=== PATIENT | female | born 1965 | race Caucasian/White ===

== ENCOUNTER 2019-07-21 21:13 | Emergency (ER) | payer SELFPAY ==
[2019-07-21] MEDS ORDERED: ASPIRIN 81 MG TABLET, CHEWABLE PO ONE ×2 (22:27→23:57)
[2019-07-21 22:40] LABS: ABSOLUTE EOSINOPHILS # (AUTO) 0.1 10^3/uL (0.0-0.6); ABSOLUTE LYMPHOCYTES (AUTO) 2.3 10^3/uL (0.5-4.7); ABSOLUTE NEUT (AUTO) 6.3 10^3/uL (1.7-8.2); BASOPHILS % (AUTO) 0.4 % (0-2); EOSINOPHILS % (AUTO) 0.9 % (0-6); HEMATOCRIT 43.5 % (36.0-47.0); HEMOGLOBIN 15.1 g/dL (12.0-15.5); MEAN CORPUSCULAR HEMOGLOBIN 32.2 pg (27.0-33.4); MEAN CORPUSCULAR HGB CONC 34.7 g/dL (32.0-36.0); MEAN CORPUSCULAR VOLUME 93 fl (80-97); PLATELET COUNT 326 10^3/uL (150-450); RED BLOOD COUNT 4.69 10^6/uL (3.72-5.28); RED CELL DISTRIBUTION WIDTH 13.2 % (11.5-14.0); SEGMENTED NEUTROPHILS % (AUTO) 64.7 % (42-78); TOTAL CELLS COUNTED % (AUTO) 100 %; WHITE BLOOD COUNT 9.7 10^3/uL (4.0-10.5)
[2019-07-21 22:45] LABS: APPEARANCE,URINE CLEAR; BILIRUBIN,URINE NEGATIVE (NEGATIVE); COLOR,URINE STRAW; GLUCOSE, URINE NEGATIVE (NEGATIVE); KETONES,URINE NEGATIVE (NEGATIVE); LEUKOCYTE ESTERASE,URINE TRACE (NEGATIVE); NITRITE,URINE NEGATIVE (NEGATIVE); PROTEIN,URINE NEGATIVE (NEGATIVE); URINE SPECIFIC GRAVITY 1.002; UROBILINOGEN,URINE NEGATIVE mg/dL (<2.0)
[2019-07-21 22:56] LABS: ALBUMIN 4.6 g/dL (3.5-5.0); ALKALINE PHOSPHATASE 121 U/L (38-126); ANION GAP 13 (5-19); ASPARTATE AMINO TRANSFERASE 47 U/L (14-36); BILIRUBIN,DIRECT 0.1 mg/dL (0.0-0.4); BILIRUBIN,TOTAL 0.7 mg/dL (0.2-1.3); BLOOD UREA NITROGEN 7 mg/dL (7-20); CALCIUM 9.7 mg/dL (8.4-10.2); CARBON DIOXIDE 23 mmol/L (22-30); CHLORIDE 88 mmol/L (98-107); CREATINE KINASE 111 U/L (30-135); GLUCOSE 101 mg/dL (75-110); POTASSIUM 3.6 mmol/L (3.6-5.0); TOTAL PROTEIN 7.4 g/dL (6.3-8.2)
--- NOTE | 2019-07-21 22:58 | RADIOLOGY REPORT (SQ) ---
EXAM DESCRIPTION: [facility]: XR CHEST 2 VIEWS Views: 2 CLINICAL HISTORY: 53 years Female, chest pain COMPARISON: 03/31/2016 FINDINGS: The lungs are clear. No pneumothorax or significant pleural effusion. Cardiomediastinal silhouette is within normal limits. Bony structures are unremarkable for age. IMPRESSION: 1. No acute cardiothoracic abnormality.
[2019-07-21 23:05] LABS: CREATINE KINASE MB 1.49 ng/mL (<4.55)
[2019-07-21 23:12] LABS: TROPONIN I 0.107 ng/mL
[2019-07-22] MEDS ORDERED: NITROGLYCERIN 0.4 MG/TAB 25 TAB/BOTTLE SL PRN (00:03)
--- NOTE | 2019-07-22 00:09 | ER Document Report ---
ED General - General Chief Complaint: Chest Pain Stated Complaint: CHEST PAIN Time Seen by Provider: 07/21/19 23:55 TRAVEL OUTSIDE OF THE [place] IN LAST 30 DAYS: No - HPI Notes: Patient presents with concern of chest pain. Yesterday she been feeling generalized fatigue and intermittent nausea. This morning she woke up roughly 5 AM on drink coffee she had a tight twisting pain in her chest she also had pain radiate down her left arm. She also had intermittent nausea with her pain no vomiting but she did have diaphoresis as well. Patient has history of 2 heart attacks and 7 stents that have been placed in the years 2010 and 2012 at outside hospitals. She is seen by community care in clinic and does not have a ethyl blender here. Her pain is wax and wane throughout the day and is relieved by the nitro spray that she has. Recent cough congestion fevers she is a non- smoker quit many years ago. - Related Data Allergies/Adverse Reactions: No Known Allergies Allergy (Unverified 03/14/11 12:41) Past Medical History - Social History Smoking Status: Unknown if Ever Smoked Family History: Reviewed & Not Pertinent - Past Medical History Cardiac Medical History: Reports: Hx Coronary Artery Disease, Hx Heart Attack, Hx Hypertension Past Surgical History: Reports: Hx Coronary Stent - RCA x 3, LCA x 1, LAD x 2, circumflex x1., Hx Tubal Ligation Review of Systems - Review of Systems Constitutional: No symptoms reported EENT: No symptoms reported Cardiovascular: See HPI Respiratory: No symptoms reported Gastrointestinal: No symptoms reported Genitourinary: No symptoms reported Female Genitourinary: No symptoms reported Musculoskeletal: No symptoms reported Skin: No symptoms reported Hematologic/Lymphatic: No symptoms reported Neurological/Psychological: No symptoms reported Physical Exam - Vital signs Vitals: Temp Pulse Resp BP Pulse Ox 98.1 F 82 16 143/73 H 98 07/21/19 21:43 07/21/19 21:43 07/21/19 21:43 07/21/19 21:43 07/21/19 21:43 - General General appearance: Appears well, Alert - HEENT Head: Normocephalic, Atraumatic Eyes: Normal Pupils: PERRL - Respiratory Respiratory status: No respiratory distress Chest status: Nontender Breath sounds: Normal Chest palpation: Normal - Cardiovascular Rhythm: Regular Heart sounds: Normal auscultation Murmur: No - Abdominal Inspection: Normal Distension: No distension Bowel sounds: Normal Tenderness: Nontender Organomegaly: No organomegaly - Neurological Neuro grossly intact: Yes Cognition: Normal Orientation: AAOx4 - Psychological Associated symptoms: Normal affect Course - Re-evaluation Re-evalutation: 07/22/19 00:44 Patient's pain goes down to 1 with nitroglycerin tablet. Her EKG taken at 10:[address] depressions V3 through V6. Repeat EKG taken at 12:29 AM [address] resolution [address] depressions. Her initial troponin is 0.107 are cut off her AMI is 0.12. Discussed this with Dr. Burleson and he recommended a second troponin II hours to see if it is rising as if it is she would need intervention and we do not have this on the weekend. 07/22/19 01:[address] sweeper operator advised and will accept patient. Her troponin actually trended down but the fact that her ST depressions resolved with nitroglycerin and her heart history will provide 1 shot of Lovenox in the emergency department. She was also given aspirin. - Vital Signs Vital signs: Temp Pulse Resp BP Pulse Ox 97.7 F 82 20 119/62 97 07/22/19 03:31 07/21/19 21:43 07/22/19 03:31 07/22/19 03:31 07/22/19 03:31 - Laboratory Result Diagrams: 07/21/19 22:25 07/21/19 22:25 Laboratory results interpreted by me: 07/21/19 07/21/19 22:25 22:25 Sodium 124.0 L Chloride 88 L AST 47 H Ur Leukocyte Esterase TRACE H - EKG Interpretation by Me Additional EKG results interpreted by me: 07/22/19 00:46 Time 2117 Rate of 88, sinus rhythm, normal axis and intervals, mild ST depression V3 through the 6 less than or equal to 1 mm Time 12:29 AM Rate of 81, sinus rhythm, normal axis, resolution of ST depressions V3 through V6 Discharge - Discharge Clinical Impression: Chest pain Qualifiers: Chest pain type: other chest pain Qualified Code(s): R07.89 - Other chest pain Condition: Good Disposition: [facility], [facility] Admitting Provider: Narciso
[2019-07-22] MEDS ORDERED: ENOXAPARIN SODIUM INJ 100 MG/1 ML DISP.SYRIN SUBCUT SCH (01:45)
[2019-07-22 01:49] LABS: INTERNATIONAL RATION (INR) 0.95; PROTHROMBIN TIME 12.7 SEC (11.4-15.4)
[2019-07-22] MEDS ORDERED: NITROGLYCERIN 2% OINTMENT 1 GM PACKET TP ONE (01:59)
[2019-07-22] MEDS ORDERED: LORAZEPAM INJ 2 MG/1 ML VIAL IV ONE (02:37)
[2019-07-22 03:50] VITALS: BP 119/62
--- NOTE | 2019-07-22 09:10 | EKG REPORT ---
SEVERITY:- ABNORMAL ECG - SINUS RHYTHM INFERIOR INFARCT, OLD LATERAL LEADS ARE ALSO INVOLVED BORDERLINE PROLONGED QT INTERVAL : Confirmed by: Lauri Villa 22-Jul-2019 09:09:31
--- NOTE | 2019-07-22 09:10 | EKG REPORT ---
SEVERITY:- ABNORMAL ECG - SINUS RHYTHM INFERIOR INFARCT, OLD LATERAL LEADS ARE ALSO INVOLVED BORDERLINE PROLONGED QT INTERVAL : Confirmed by: Lauri Villa 22-Jul-2019 09:09:22
--- NOTE | 2019-07-22 09:11 | EKG REPORT ---
SEVERITY:- BORDERLINE ECG - SINUS RHYTHM BORDERLINE INFERIOR Q WAVES LVH : Confirmed by: Lauri Villa 22-Jul-2019 09:09:49
== END 2019-07-22 03:50 | disposition short-term general hospital (02) ==
LOC: ER 21:13
DX: R07.89 Other chest pain (principal); R11.0 Nausea; R53.83 Other fatigue; I25.10 Atherosclerotic heart disease of native coronary artery without angina pectoris; I10 Essential (primary) hypertension; I25.2 Old myocardial infarction; Z98.51 Tubal ligation status
CPT/HCPCS: 93005 ×2; 99285; 96374; 96375; 36415; 82553; 82550; 83735; 85025; 85610; 80053; 81001; 84484; 71046; 93010 ×2; J2060; J1650

== ENCOUNTER 2019-08-22 13:29 | Emergency (ER) | payer SELFPAY ==
[2019-08-22] MEDS ORDERED: ASPIRIN 81 MG TABLET, CHEWABLE PO ONE (13:40)
[2019-08-22 13:52] LABS: ABSOLUTE LYMPHOCYTES (AUTO) 2.2 10^3/uL (0.5-4.7); ABSOLUTE MONOCYTES (AUTO) 0.6 10^3/uL (0.1-1.4); ABSOLUTE NEUT (AUTO) 4.4 10^3/uL (1.7-8.2); BASOPHILS % (AUTO) 0.6 % (0-2); EOSINOPHILS % (AUTO) 0.6 % (0-6); HEMOGLOBIN 14.3 g/dL (12.0-15.5); LYMPHOCYTES % (AUTO) 30.1 % (13-45); MEAN CORPUSCULAR HEMOGLOBIN 31.8 pg (27.0-33.4); MEAN CORPUSCULAR HGB CONC 33.2 g/dL (32.0-36.0); MEAN CORPUSCULAR VOLUME 96 fl (80-97); MONOCYTES % (AUTO) 7.7 % (3-13); PLATELET COUNT 387 10^3/uL (150-450); RED BLOOD COUNT 4.49 10^6/uL (3.72-5.28); RED CELL DISTRIBUTION WIDTH 14.5 % (11.5-14.0); TOTAL CELLS COUNTED % (AUTO) 100 %; WHITE BLOOD COUNT 7.2 10^3/uL (4.0-10.5)
[2019-08-22 14:17] LABS: ALBUMIN 4.3 g/dL (3.5-5.0); ALKALINE PHOSPHATASE 135 U/L (38-126); ANION GAP 16 (5-19); ASPARTATE AMINO TRANSFERASE 40 U/L (14-36); BILIRUBIN,DIRECT 0.2 mg/dL (0.0-0.4); BILIRUBIN,TOTAL 0.3 mg/dL (0.2-1.3); BLOOD UREA NITROGEN 3 mg/dL (7-20); CALCIUM 9.2 mg/dL (8.4-10.2); CARBON DIOXIDE 18 mmol/L (22-30); CHLORIDE 110 mmol/L (98-107); CREATINE KINASE 82 U/L (30-135); GLUCOSE 97 mg/dL (75-110); POTASSIUM 4.2 mmol/L (3.6-5.0); TOTAL PROTEIN 7.4 g/dL (6.3-8.2)
[2019-08-22 14:45] LABS: CREATINE KINASE MB 1.28 ng/mL (<4.55)
[2019-08-22 14:47] LABS: TROPONIN I < 0.012 ng/mL
[2019-08-22] MEDS ORDERED: KETOROLAC TROMETHAMINE INJ/PF 30 MG/1 ML SDV IV ONE (15:02)
--- NOTE | 2019-08-22 15:24 | RADIOLOGY REPORT (SQ) ---
EXAM DESCRIPTION: CHEST SINGLE VIEW COMPLETED DATE/TIME: 08/22/2019 3:00 pm REASON FOR STUDY: pain/sob COMPARISON: PA and lateral views of the chest from 07/21/2019. EXAM PARAMETERS: NUMBER OF VIEWS: One view. TECHNIQUE: Single frontal radiographic view of the chest acquired. RADIATION DOSE: NA LIMITATIONS: None. FINDINGS: LUNGS AND PLEURA: Asymmetric opacity in the left base that blunts the left lateral costoph renic sulcus and is associated with volume loss given the elevation of the left hemidiaphragm. There is no pneumothorax. MEDIASTINUM AND HILAR STRUCTURES: No mediastinal hilar contour abnormality. HEART AND VASCULAR STRUCTURES: The cardiac silhouette and pulmonary vasculature within normal limits. BONES: No acute findings. HARDWARE: Median sternotomy wires and mediastinal surgical clips. OTHER: No other finding. IMPRESSION: Acute left basilar opacity that is associated with volume loss given the elevation of th e left hemidiaphragm. Given the volume loss a combination of pleural fluid and atelectasis is favore d, however clinical correlation to exclude an infection is recommended. TECHNICAL DOCUMENTATION: JOB ID: [id number]- All Rights Reserved Reading location - IP/workstation name: [email or web address]
--- NOTE | 2019-08-22 15:33 | EKG REPORT ---
SEVERITY:- ABNORMAL ECG - SINUS RHYTHM PROBABLE LEFT ATRIAL ABNORMALITY RIGHT BUNDLE BRANCH BLOCK INFERIOR INFARCT, AGE INDETERMINATE : Confirmed by: Lorenzo Chandler MD 22-Aug-2019 15:32:58
[2019-08-22] MEDS ORDERED: TRAMADOL HCL 50 MG TABLET PO ONE (15:47)
[2019-08-22] MEDS ORDERED: MORPHINE SULFATE 10 MG/ML INJ IV ONE ×2 (18:00→21:05)
--- NOTE | 2019-08-22 18:05 | ER Document Report ---
ED Cardiac - General Chief Complaint: Chest Pain Stated Complaint: DIFFICULTY BREATHING Time Seen by Provider: 08/22/19 14:27 Primary Care Provider: STEPHANIA YUAN PA-C [Primary Care Provider] - Follow up as needed Mode of Arrival: Medic Information source: Patient TRAVEL OUTSIDE OF THE [place] IN LAST 30 DAYS: No - HPI Notes: Patient presents complaining of chest pain. She states she was talking on the phone when she had syncope. She says that she remembers talking on the phone and the next thing she knows she was hearing people knock on her door while she was laying on the living room floor. She states that apparently her daughter who was talking to her on the phone called paramedics when she no longer responded while they were talking on the phone. Patient states that she got up to answer the door for the paramedics she tripped and fell and scraped her right knee. She states she is not having chest pain. She is unsure if she was having chest pain before she fell. She states she also feels short of breath. And anxious. Patient's chest pain is now across both sides of her chest and in her breast. It is worse with movement and better with rest. It is moderate in intensity. It is aching. She has had no significant cough or fevers recently. She did recently have a coronary artery bypass graft on approximately July 252018. Subsequently she developed a left pleural effusion which was drained on August 092018. The pain has been moderate. - Related Data Allergies/Adverse Reactions: ketorolac [From Toradol] Adverse Reaction (Verified 08/22/19 15:16) Past Medical History - General Information source: Patient - Social History Smoking Status: Former Smoker Frequency of alcohol use: None Drug Abuse: None Family History: Reviewed & Not Pertinent Patient has suicidal ideation: No Patient has homicidal ideation: No - Past Medical History Cardiac Medical History: Reports: Hx Coronary Artery Disease, Hx Heart Attack, Hx Hypercholesterolemia, Hx Hypertension Past Surgical History: Reports: Hx Cardiac Surgery - triple bypass, 7 stents, Hx Coronary Stent - RCA x 3, LCA x 1, LAD x 2, circumflex x1., Hx Tubal Ligation Review of Systems - Review of Systems Constitutional: Malaise, Weakness. denies: Chills, Fever Cardiovascular: Chest pain. denies: Palpitations Respiratory: Short of breath. denies: Stridor Gastrointestinal: denies: Abdominal pain, Diarrhea -: Yes All other systems reviewed and negative Physical Exam - Vital signs Vitals: Pulse BP Pulse Ox 111 H 147/96 H 94 08/22/19 13:35 08/22/19 13:35 08/22/19 13:35 Interpretation: Tachycardic - General General appearance: Appears well, Alert - HEENT Head: Normocephalic, Atraumatic Eyes: Normal Pupils: PERRL - Respiratory Respiratory status: No respiratory distress Chest status: Tender - Chest diffusely tender to palpation Breath sounds: Decreased air movement - Bilateral Chest palpation: Tender. No: Flail segment, Sucking chest wound - Cardiovascular Rhythm: Tachycardia Heart sounds: Normal auscultation Murmur: No - Abdominal Inspection: Normal Distension: No distension Bowel sounds: Normal Tenderness: Nontender Organomegaly: No organomegaly - Back Back: Normal, Nontender - Extremities General upper extremity: Normal inspection, Nontender, Normal color, Normal ROM, Normal temperature General lower extremity: Normal temperature, Other - Left lower extremity unremarkable. Right lower extremity has a tender abraded area over the right knee. - Neurological Neuro grossly intact: Yes Cognition: Normal Orientation: AAOx4 Dewitt Coma Scale Eye Opening: Spontaneous Alexa Coma Scale Verbal: Oriented Dewitt Coma Scale Motor: Obeys Commands Dewitt Coma Scale Total: 15 Speech: Normal Motor strength normal: LUE, RUE, LLE, RLE Sensory: Normal - Psychological Associated symptoms: Normal affect, Normal mood - Skin Skin Temperature: Warm Skin Moisture: Dry Skin Color: Normal Course - Re-evaluation Re-evalutation: 08/22/19 18:03 Patient presents with apparent syncope and chest pain. She did recently have a CABG as well as a pleural effusion drained. She is also had some shortness of breath here. Her EKG has some new ST depression but I am on sure if this is new since her CABG. The only old EKG I have was before she had the CABG. Patient has a negative troponin at this time. She has an unremarkable chest x-ray except for a small effusion on the left but this is known. Patient's vital signs have been stable. I have called and discussed the case with her cardiothoracic surgeon at [facility]. He has accepted the patient in transfer. - Vital Signs Vital signs: Temp Pulse Resp BP Pulse Ox 97.9 F 98 20 121/85 98 08/22/19 14:14 10/29/19 14:00 08/22/19 17:00 08/22/19 17:01 08/22/19 17:01 - Laboratory Result Diagrams: 08/22/19 13:40 08/22/19 13:40 Laboratory results interpreted by me: 08/22/19 08/22/19 13:40 13:40 RDW 14.5 H Chloride 110 H Carbon Dioxide 18 L BUN 3 L AST 40 H Alkaline Phosphatase 135 H - Diagnostic Test Radiology reviewed: Image reviewed, Reports reviewed - EKG Interpretation by Me EKG shows normal: Sinus rhythm Rate: Normal - 95 Rhythm: NSR Raven/QRS: RBBB Discharge - Discharge Clinical Impression: Syncope and collapse Chest pain Qualifiers: Chest pain type: unspecified Qualified Code(s): R07.9 - Chest pain, unspecified Condition: Stable Disposition: [facility] Referrals: STEPHANIA YUAN PA-C [Primary Care Provider] - Follow up as needed
[2019-08-23 00:11] VITALS: BP 130/82
[2019-08-23] MEDS ORDERED: MORPHINE SULFATE 10 MG/ML INJ IV ONE (00:20)
--- NOTE | 2019-08-23 00:21 | ER Document Report ---
Doctor's Note Notes: 08/23/19 00:21 Patient has been reevaluated and is safe for transport to receiving facility.
== END 2019-08-23 00:37 | disposition short-term general hospital (02) ==
LOC: ER 13:29
DX: R55 Syncope and collapse (principal); R07.9 Chest pain, unspecified; R06.00 Dyspnea, unspecified; R53.81 Other malaise; Z98.51 Tubal ligation status; Z95.1 Presence of aortocoronary bypass graft
CPT/HCPCS: 93005; 96376; 99285; 96374; 36415; 82553; 82550; 85025; 80053; 84484; 71045; 93010; J2270 ×2

== ENCOUNTER 2019-09-17 01:49 | Emergency (ER) | payer SELFPAY ==
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
[2019-09-17 03:37] LABS: APPEARANCE,URINE SLIGHTLY-CLOUDY; BILIRUBIN,URINE NEGATIVE (NEGATIVE); COLOR,URINE YELLOW; GLUCOSE, URINE NEGATIVE (NEGATIVE); KETONES,URINE NEGATIVE (NEGATIVE); LEUKOCYTE ESTERASE,URINE LARGE (NEGATIVE); NITRITE,URINE NEGATIVE (NEGATIVE); PROTEIN,URINE NEGATIVE (NEGATIVE); URINE SPECIFIC GRAVITY 1.005; UROBILINOGEN,URINE NEGATIVE mg/dL (<2.0)
[2019-09-17 03:44] LABS: ABSOLUTE MONOCYTES (AUTO) 0.9 10^3/uL (0.1-1.4); TOTAL CELLS COUNTED % (AUTO) 100 %
[2019-09-17] MEDS ORDERED: LIDOCAINE 1%/EPINEPHRINE INJ 20 ML VIAL INJ ONE (03:44)
[2019-09-17 03:45] LABS: URINE AMPHETAMINES SCREEN NEGATIVE; URINE BARBITURATES SCREEN NEGATIVE; URINE COCAINE SCREEN NEGATIVE; URINE MARIJUANA (THC) SCREEN NEGATIVE; URINE METHADONE SCREEN NEGATIVE; URINE PHENCYCLIDINE SCREEN NEGATIVE
[2019-09-17 03:46] LABS: URINE BENZODIAZEPINES SCREEN UNCONFIRMED POSITIVE
[2019-09-17 03:50] LABS: ABSOLUTE LYMPHOCYTES (AUTO) 3.1 10^3/uL (0.5-4.7); ABSOLUTE NEUT (AUTO) 6.4 10^3/uL (1.7-8.2); BASOPHILS % (AUTO) 0.3 % (0-2); EOSINOPHILS % (AUTO) 0.2 % (0-6); HEMATOCRIT 39.9 % (36.0-47.0); HEMOGLOBIN 13.6 g/dL (12.0-15.5); LYMPHOCYTES % (AUTO) 29.3 % (13-45); MEAN CORPUSCULAR VOLUME 94 fl (80-97); MONOCYTES % (AUTO) 8.5 % (3-13); PLATELET COUNT 446 10^3/uL (150-450); RED BLOOD COUNT 4.24 10^6/uL (3.72-5.28); SEGMENTED NEUTROPHILS % (AUTO) 61.7 % (42-78); WHITE BLOOD COUNT 10.4 10^3/uL (4.0-10.5)
--- NOTE | 2019-09-17 03:51 | RADIOLOGY REPORT (SQ) ---
EXAM DESCRIPTION: XR FOOT 3 OR MORE VIEWS COMPLETED DATE/TME: 09/17/2019 02:54 CLINICAL HISTORY: 53 years, Female, glass? swelling, pain COMPARISON: None. NUMBER OF VIEWS: Three TECHNIQUE: Three views of the right foot LIMITATIONS: None. FINDINGS: There is no acute fracture or dislocation. There is no radiopaque foreign body. There is no large soft tissue swelling. IMPRESSION: No acute fracture or dislocation copyright 2010 [employer]- All Rights Reserved
--- NOTE | 2019-09-17 03:52 | RADIOLOGY REPORT (SQ) ---
EXAM DESCRIPTION: XR CHEST 1 VIEW COMPLETED DATE/TME: 09/17/2019 02:53 CLINICAL HISTORY: 53 years, Female, chest pain COMPARISON: 08/22/2019 NUMBER OF VIEWS: One TECHNIQUE: AP view of the chest LIMITATIONS: None. FINDINGS: There is stable mild elevation of the left hemidiaphragm. There is no focal consolidation. The heart size is stable. There is no pneumothorax or large pleural effusion. Median sternotomy wires are noted. IMPRESSION: No acute cardiopulmonary abnormality copyright 2010 [employer]- All Rights Reserved
--- NOTE | 2019-09-17 03:53 | RADIOLOGY REPORT (SQ) ---
EXAM DESCRIPTION: XR TIBIA FIBULA 2 VIEWS COMPLETED DATE/TME: 09/17/2019 02:54 CLINICAL HISTORY: 53 years, Female, glass? swelling, pain COMPARISON: None. NUMBER OF VIEWS: Two TECHNIQUE: Two views of the left tibia and fibula LIMITATIONS: None. FINDINGS: There is no acute fracture or dislocation. No radiopaque foreign body. There are surgical clips posterior to the proximal tibia and fibula. No large soft tissue swelling. IMPRESSION: No acute fracture or dislocation. copyright 2010 [employer]- All Rights Reserved
--- NOTE | 2019-09-17 03:54 | RADIOLOGY REPORT (SQ) ---
EXAM DESCRIPTION: XR HAND 3 OR MORE VIEWS COMPLETED DATE/TME: 09/17/2019 02:54 CLINICAL HISTORY: 53 years, Female, glass? swelling, pain COMPARISON: None. NUMBER OF VIEWS: Three TECHNIQUE: Three views of the right hand LIMITATIONS: None. FINDINGS: There is no acute fracture or dislocation. There is no radiopaque foreign body. No large soft tissue swelling. IMPRESSION: No acute fracture or dislocation copyright 2010 [employer]- All Rights Reserved
[2019-09-17 03:59] LABS: ACETAMINOPHEN < 10 ug/mL (10-30); ALBUMIN 4.2 g/dL (3.5-5.0); ALCOHOL 180 mg/dL (NONE DETECTED); ALKALINE PHOSPHATASE 111 U/L (38-126); ANION GAP 16 (5-19); ASPARTATE AMINO TRANSFERASE 42 U/L (14-36); BILIRUBIN,DIRECT 0.1 mg/dL (0.0-0.4); BILIRUBIN,TOTAL 0.4 mg/dL (0.2-1.3); BLOOD UREA NITROGEN 4 mg/dL (7-20); CALCIUM 9.4 mg/dL (8.4-10.2); CARBON DIOXIDE 17 mmol/L (22-30); CHLORIDE 106 mmol/L (98-107); GLUCOSE 104 mg/dL (75-110); POTASSIUM 4.3 mmol/L (3.6-5.0); SALICYLATE < 1.0 mg/dL (2.0-20.0); TOTAL PROTEIN 7.4 g/dL (6.3-8.2)
[2019-09-17] MEDS ORDERED: FAMOTIDINE 20 MG TABLET PO ONE (05:10)
[2019-09-17] MEDS ORDERED: ASPIRIN 81 MG TABLET, CHEWABLE PO ONE (05:10)
[2019-09-17] MEDS ORDERED: NORMAL SALINE 1000 ML 1,000 ML IV ONE ×2 (05:11→06:12)
[2019-09-17] MEDS ORDERED: ONDANSETRON HCL INJ/PF 4 MG/2 ML SDV IV ONE (05:11)
[2019-09-17] MEDS ORDERED: MORPHINE SULFATE 10 MG/ML INJ IV ONE (05:11)
[2019-09-17] MEDS ORDERED: HEPARIN SOD (PORCINE) 1,000 UNIT/ML 10 ML VIAL IV ONE (05:55)
[2019-09-17] MEDS ORDERED: HEPARIN SODIUM,PORCINE/D5W 25,000 UNIT/250 ML RTUINJ IV PRN (05:55)
[2019-09-17 06:06] LABS: PROTHROMBIN TIME 20.2 SEC (11.4-15.4)
[2019-09-17 06:07] LABS: PARTIAL THROMBOPLASTIN TIME 25.5 SEC (23.5-35.8)
[2019-09-17] MEDS ORDERED: NORMAL SALINE 500 ML IV ONE (06:34)
[2019-09-17 07:10] VITALS: BP 108/52
[2019-09-17] MEDS ORDERED: HEPARIN SOD (PORCINE) 1,000 UNIT/ML 10 ML VIAL IV PRN (08:56)
--- NOTE | 2019-09-17 17:15 | EKG REPORT ---
SEVERITY:- ABNORMAL ECG - SINUS RHYTHM RIGHT BUNDLE BRANCH BLOCK INFERIOR INFARCT, AGE INDETERMINATE : Confirmed by: Lorenzo Chandler MD 17-Sep-2019 17:15:24
--- NOTE | 2019-09-17 17:15 | EKG REPORT ---
SEVERITY:- ABNORMAL ECG - SINUS RHYTHM RIGHT BUNDLE BRANCH BLOCK INFERIOR INFARCT, AGE INDETERMINATE : Confirmed by: Lorenzo Chandler MD 17-Sep-2019 17:15:11
== END 2019-09-17 07:25 | disposition short-term general hospital (02) ==
LOC: ER 01:49
DX: I21.4 Non-ST elevation (NSTEMI) myocardial infarction (principal); I95.9 Hypotension, unspecified; R07.9 Chest pain, unspecified; R45.851 Suicidal ideations; S81.012A Laceration without foreign body, left knee, initial encounter; W25.XXXA Contact with sharp glass, initial encounter; E78.00 Pure hypercholesterolemia, unspecified; I10 Essential (primary) hypertension; Z98.51 Tubal ligation status; Z95.1 Presence of aortocoronary bypass graft; I25.2 Old myocardial infarction
CPT/HCPCS: 93005; 96376; 99291; 96361; 96375; 96365; 36415; 87086; 80307 ×4; 85025; 85610; 85730; 80053; 81001; 84484; 71045; 73630; 73130; 73590; 93010; J1644 ×2; J3490; J2270; J2405; J7030; J7040